=== PATIENT | female | born 1945 | race Two or more races ===

== ENCOUNTER 2024-01-23 19:21 | Inpatient (IN) | payer MEDICARE, MEDICAID ==
[~2024-01-23] VITALS: Ht 157.5 cm; Wt 46.2 kg
[2024-01-23 21:28] LABS: Basophils # (auto) 0 10 ^3/uL (0-0.2); Basophils % (auto) 0.5 % (0.0-2.0); Eosinophils # (auto) 0 10 ^3/uL (0-0.8); Hematocrit 38.5 % (36.0-46.0); Hemoglobin 13.1 g/dL (12.2-16.2); Lymphocytes # (auto) 1.1 10 ^3/uL (0.4-5.4); Lymphocytes % (auto) 30.6 % (10.0-50.0); Mean Corpuscular Hgb Conc. 34.1 g/dL (32.0-36.0); Mean Corpuscular Volume 90.7 fL (80.0-100.0); Monocytes # (auto) 0.5 10 ^3/uL (0-1.3); Monocytes % (auto) 15.2 % (0.0-12.0); Neutrophils # (auto) 1.9 10 ^3/uL (1.6-8.6); Neutrophils % (auto) 53.7 % (37.0-80.0); Nucleated Red Blood Cells % 0.3 %; Red Blood Cells 4.24 10^6/uL (4.0-5.20); Red Cell Distribution Width 14.3 % (11.8-14.3); White Blood Cell 3.5 10^3/uL (4.4-10.8)
[2024-01-23 21:49] LABS: Alanine Aminotransferase 33 U/L (7-40); Alkaline Phosphatase 67 U/L (46-116); Anion Gap 6 (5-15); Aspartate Aminotransferase 43 U/L (13-40); BUN/Creatinine Ratio 30.4 (10.0-20.0); Blood Urea Nitrogen 21 mg/dL (9-23); Calcium 9.4 mg/dL (8.7-10.4); Carbon Dioxide 30 mmol/L (20-30); Chloride 103 mmol/L (98-107); Glucose 94 mg/dL (74-106); Potassium 3.9 mmol/L (3.5-5.1); Sodium 139 mmol/L (136-145)
[2024-01-23 21:50] LABS: Bilirubin, Total 0.6 mg/dL (0.2-1.0); Total Protein 6.3 g/dL (5.7-8.2)
[2024-01-24] MEDS: HALOPERIDOL LACTATE 5 MG/ML INJ VIAL IM ONE (02:52)
[2024-01-24] MEDS ORDERED: ACETAMINOPHEN 325 MG TAB PO PRN (03:00)
[2024-01-24] MEDS ORDERED: ONDANSETRON HCL 4 MG/2 ML VIAL IV PRN (03:00)
[2024-01-24] MEDS ORDERED: HALOPERIDOL LACTATE 5 MG/ML INJ VIAL IM PRN (06:45)
[2024-01-24 09:18] VITALS: PULSE 62; RESP 14; O2SAT 98
[2024-01-24] MEDS: MEMANTINE HCL 5 MG TAB PO SCH (10:00)
[2024-01-24] MEDS: ENOXAPARIN SOD 40 MG/0.4 ML SYRINGE SC SCH (10:00)
[2024-01-24] MEDS: DONEPEZIL HYDROCHLORIDE 5 MG TAB PO SCH (22:00)
[2024-01-24 22:34] VITALS: BP 98/49; PULSE 69; RESP 18; TEMP 98.5; O2SAT 93
[2024-01-25 00:22] LABS: Urine Bacteria FEW /hpf (None Seen); Urine Blood Negative /uL (Negative); Urine Clarity Turbid (Clear); Urine Color Yellow (Yellow); Urine Hyaline Cast FEW /lpf (0 - 2); Urine Mucus FEW (None Seen); Urine Protein, UAD TRACE (Negative); Urine Specific Gravity 1.022 (1.001-1.035); Urine Urobilinogen Normal (Negative); Urine WBC 26 /hpf (0 - 5); Urine pH 5.5 (5.0-9.0)
[2024-01-25 00:27] LABS: Amphetamine Screen, Urine Neg (NEGATIVE); Barbiturate Scree,Urine Neg (NEGATIVE); Benzodiazephine Screen, Urine Neg (NEGATIVE); Cocaine Screen, Urine Neg (NEGATIVE); Opiate Scree,Urine Neg (NEGATIVE)
[2024-01-25 00:28] LABS: Cannabinoid Screen, Urine Neg (NEGATIVE); Phencyclidine Screen, Urine Neg (NEGATIVE)
[2024-01-25 01:00] VITALS: BP 99/50; PULSE 70; RESP 18; TEMP 98.1; O2SAT 93
[2024-01-25 05:00] VITALS: BP 105/53; PULSE 68; RESP 18; TEMP 98; O2SAT 93
[2024-01-25 09:00] VITALS: BP 101/52; PULSE 68; RESP 18; TEMP 98.1; O2SAT 92
[2024-01-25] MEDS ORDERED: MEMA1TAB5 PO (12:20)
[2024-01-25] MEDS ORDERED: LANS30CA58 PO (12:20)
[2024-01-25] MEDS ORDERED: HAL1T PO (12:20)
[2024-01-25] MEDS ORDERED: DIVA1TAB58 PO (12:20)
[2024-01-25] MEDS ORDERED: DONE1TAB88 PO (12:20)
[2024-01-25 13:00] VITALS: BP 104/50; PULSE 68; RESP 18; TEMP 98.2; O2SAT 93
[2024-01-25] MEDS: cefTRIAXone 1GM/50ML D5W 50 ML IV ONE (14:35)
[2024-01-25 16:54] VITALS: BP 92/58; PULSE 72; RESP 16; TEMP 97.8; O2SAT 95
[2024-01-25 21:43] VITALS: BP 108/56; PULSE 70; RESP 16; TEMP 98.3; O2SAT 92
[2024-01-26 05:00] VITALS: BP 100/55; PULSE 66; RESP 14; TEMP 98.1; O2SAT 94
[2024-01-26 08:00] VITALS: RESP 16
[2024-01-26] MEDS: cefTRIAXone 1GM/50ML D5W 50 ML IV SCH (08:44)
[2024-01-26 09:00] VITALS: BP 98/59; PULSE 72; RESP 16; O2SAT 95
[2024-01-26 13:50] LABS: Basophils # (auto) 0 10 ^3/uL (0-0.2); Basophils % (auto) 0.5 % (0.0-2.0); Eosinophils # (auto) 0 10 ^3/uL (0-0.8); Eosinophils % (auto) 1.3 % (0.0-7.0); Hematocrit 35.4 % (36.0-46.0); Hemoglobin 12.3 g/dL (12.2-16.2); Lymphocytes # (auto) 1.1 10 ^3/uL (0.4-5.4); Lymphocytes % (auto) 38.2 % (10.0-50.0); Mean Corpuscular Hemoglobin 31.2 pg (28.0-32.0); Mean Corpuscular Hgb Conc. 34.6 g/dL (32.0-36.0); Mean Corpuscular Volume 90.1 fL (80.0-100.0); Monocytes # (auto) 0.3 10 ^3/uL (0-1.3); Monocytes % (auto) 9.5 % (0.0-12.0); Neutrophils # (auto) 1.4 10 ^3/uL (1.6-8.6); Neutrophils % (auto) 50.5 % (37.0-80.0); Nucleated Red Blood Cells % 0.1 %; Red Blood Cells 3.93 10^6/uL (4.0-5.20); Red Cell Distribution Width 14.4 % (11.8-14.3); White Blood Cell 2.8 10^3/uL (4.4-10.8)
[2024-01-26 14:14] LABS: Chloride 106 mmol/L (98-107); Potassium 3.6 mmol/L (3.5-5.1); Sodium 142 mmol/L (136-145)
[2024-01-26 14:15] LABS: Anion Gap 4 (5-15); Calcium 8.9 mg/dL (8.7-10.4); Carbon Dioxide 32 mmol/L (20-30)
[2024-01-26 14:20] LABS: BUN/Creatinine Ratio 27.6 (10.0-20.0); Blood Urea Nitrogen 16 mg/dL (9-23); Glucose 106 mg/dL (74-106)
[2024-01-26 17:00] VITALS: BP_SYST 101; BP_SYST 111; BP_DIAS 51; BP_DIAS 57; PULSE 67; PULSE 69; RESP 16; TEMP 98; TEMP 98.2; O2SAT 94; O2SAT 95
[2024-01-26 21:00] VITALS: BP 101/61; PULSE 66; RESP 17; TEMP 98.8; O2SAT 92
[2024-01-27] VITALS (7 sets, daily range): BP systolic 103–133; BP diastolic 59–67; PULSE 62–70; RESP 16–18; TEMP 97.6–98.7; O2SAT 93–95
[2024-01-27] MEDS: Ensure HIGH Protein Chocolate 8oz Bottle PO SCH (12:00)
[2024-01-28] VITALS (7 sets, daily range): BP systolic 118–138; BP diastolic 62–85; PULSE 60–67; RESP 16–18; TEMP 97.4–98.6; O2SAT 93–97
[2024-01-29] VITALS (7 sets, daily range): BP systolic 116–122; BP diastolic 57–68; PULSE 64–70; RESP 14–18; TEMP 97.3–98.1; O2SAT 93–98
[2024-01-29] MEDS ORDERED: CEPH250S41 PO (11:54)
== END 2024-01-29 18:18 | disposition home or self-care (01) | DRG 71 ==
LOC: ER 19:21 → EDBD 19:21 → OVERFLOW 01-24 02:52 → WEST WING 01-24 22:10
PROVIDERS: ADMIT Nurse Practitioner; ATTEND Internal Medicine Geriatric Medicine
DX: G93.41 Metabolic encephalopathy (principal); F02.B2 Dementia in other diseases classified elsewhere, moderate, with psychotic disturbance; R64 Cachexia; N30.00 Acute cystitis without hematuria; G30.9 Alzheimer's disease, unspecified; D70.9 Neutropenia, unspecified; Z68.21 Body mass index [BMI] 21.0-21.9, adult; Z79.899 Other long term (current) drug therapy
CPT/HCPCS: 36415; 70450; 71045; 80048; 80053; 80307; 81001; 84484; 85025; 87081; G0378

== ENCOUNTER 2024-06-26 19:49 | Inpatient (IN) | payer OTHER, MEDICAID ==
[~2024-06-26] VITALS: Ht 157.5 cm; Wt 38.5 kg
[~2024-06-26 19:49] MED LIST: CEPH250S PO; DIVA1TAB58 PO; DONE1TAB88 PO; HAL1T PO; LANS30CA58 PO; MEMA1TAB5 PO
--- NOTE | 2024-06-26 20:15 | ED.PDOC ---
Altered Mental Status HPI Comments 78 year old female brought in by EMS presents to the ED with a chief complaint of ALOC. Per EMS, patient is from [facility] and EMS was called due to patient not getting out of bed for past 2 days, altered behavior, refusing to take medication. Patient has a history of similar behavior when she has a UTI. Patient is usually aware to self and is able to state name and date of but during assessment patient was nonverbal. PMHx Dementia, GERD, UTIs. No other symptoms or modifying factors present at this time. Chief Complaint: ALOC Time Seen by MD: 20:08 Reviewed Notes: Medications, Allergies Allergies: Coded Allergies: NO KNOWN ALLERGIES (Unverified , 01/24/24) Home Meds Active Scripts Cephalexin (Cephalexin) 250 Mg/5 Ml Peg, 5 ML PO TID for 5 Days, #75 ML Prov:SHANNAN HIGUERA MD 01/29/24 Reported Medications Divalproex Sodium (Divalproex Sodium Dr) 250 Mg Tab, 250 MG PO BID, TAB 01/25/24 Memantine Hydrochloride (Memantine HCl) 10 Mg Tab, 10 MG PO BID, TAB 01/25/24 Donepezil Hydrochloride (DONEPEZIL HCL) 10 Mg Tab, 10 MG PO HS, MG 01/25/24 Haloperidol (Haldol) 1 Mg Tb, 1 MG PO BID, MG 01/25/24 Lansoprazole (Lansoprazole Dr) 30 Mg Cap, 30 MG PO DAILY, CAP 01/25/24 Information Source: Emergency Med Personnel Mode of Arrival: EMS Severity: Moderate Timing: Days Duration: Since onset Prehospital treatment: None Quality: Change in Behavior, Confusion History of: Dementia Associated Signs and Symptoms: None Past Medical History PAST MEDICAL HISTORY: Dementia, GERD, UTI'S Surgical History: Unknown 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 Pupils symmetric. No facial asymmetry.) Neck: Full Range of Motion, Non-Tender, Normal Inspection, Supple Respiratory: Lungs Clear, No Accessory Muscle Use, No Respiratory Distress, Normal Breath Sounds Cardiovascular: No Edema, No JVD, Regular Rate/Rhythm Breast Exam: Deferred Gastrointestinal: Soft, Other (swats my hand away when attempts made to palpate abdomen) Genitalia: Deferred Pelvic: Deferred Rectal: Deferred Extremities: Normal inspection, Normal range of motion, Non-tender, No pedal edema Neurologic: Alert (Oriented x1. Does not answer questions. Does not follow commands.), Other (Moves all extremities with adequate strength and tone. No gross focal deficit.) Cerebellar Function: NOT DONE Reflexes: NOT DONE Skin: Dry, Pallor, Warm Lymphatic: NOT DONE Was a procedure done? Was a procedure done?: No Differential Diagnosis (ALOC) Differential Diagnosis: Dehydration, Hypoglycemia, Encephalopathy, Sepsis, CVA, Mass Lesion, SAH, Heart Failure, Renal Failure, Other (UTI) X-Ray, Labs, Meds, VS Vital Signs Date Time Temp Pulse Resp B/P (MAP) Pulse Ox O2 Delivery O2 Flow Rate FiO2 06/26/24 19:55 98.6 104 14 131/100 (110) 97 Lab Test 06/26/24 21:41 06/26/24 20:40 Range/Units Troponin I High Sensitivity 5 5 </=34 ng/L White Blood Count 17.6 H 4.4-10.8 10^3/uL Red Blood Count 4.82 4.0-5.20 10^6/uL Hemoglobin 14.9 12.2-16.2 g/dL Hematocrit 44.6 36.0-46.0 % Mean Corpuscular Volume 92.5 80.0-100.0 fL Mean Corpuscular Hemoglobin 31.0 28.0-32.0 pg Mean Corpuscular Hemoglobin Concent 33.5 32.0-36.0 g/dL Red Cell Distribution Width 13.2 11.8-14.3 % Platelet Count 211 140-450 10^3/uL Mean Platelet Volume 9.1 6.9-10.8 fL Neutrophils (%) (Auto) 90.2 H 37.0-80.0 % Lymphocytes (%) (Auto) 6.5 L 10.0-50.0 % Monocytes (%) (Auto) 3.1 0.0-12.0 % Eosinophils (%) (Auto) 0.0 0.0-7.0 % Basophils (%) (Auto) 0.2 0.0-2.0 % Neutrophils # (Auto) 15.9 H 1.6-8.6 10 ^3/uL Lymphocytes # (Auto) 1.1 0.4-5.4 10 ^3/uL Monocytes # (Auto) 0.5 0-1.3 10 ^3/uL Eosinophils # (Auto) 0 0-0.8 10 ^3/uL Basophils # (Auto) 0 0-0.2 10 ^3/uL Nucleated Red Blood Cells 0.0 % Sodium Level 144 136-145 mmol/L Potassium Level 4.0 3.5-5.1 mmol/L Chloride Level 108 H 98-107 mmol/L Carbon Dioxide Level 26 20-31 mmol/L Anion Gap 10 5-15 Blood Urea Nitrogen 26 H 9-23 mg/dL Creatinine 0.82 0.550-1.02 mg/dL Glomerular Filtration Rate Calc 73 >90 mL/min BUN/Creatinine Ratio 31.7 H 10.0-20.0 Serum Glucose 114 H 74-106 mg/dL Lactic Acid Level 1.4 0.4-2.0 mmol/L Calcium Level 9.9 8.7-10.4 mg/dL Total Bilirubin 0.8 0.2-1.0 mg/dL Aspartate Amino Transferase (AST) 40 13-40 U/L Alanine Aminotransferase (ALT) 12 7-40 U/L Alkaline Phosphatase 105 46-116 U/L Total Protein 7.3 5.7-8.2 g/dL Albumin 4.2 3.2-4.8 g/dL [place] [id number] Ph: [phone] DIAGNOSTIC IMAGING Diagnostic Imaging Report : [id number] Signed PATIENT: PATRICIA MOTT ACCT: [id number] UNIT: [id number] : 1945 LOC: ER ROOM / BED: / AGE / SEX: 78 / F ADM STATUS: REG ER SERVICE 10 ORDERING PHYSICIAN: MARILIN FISHMAN MD PROCEDURE(s): CXRP - CHEST PORTABLE REASON: aloc ORDER NUMBER(s): [id number], ACCESSION NUMBER(s): [id number] CHEST RADIOGRAPH Indication: aloc Technique: Single frontal view of the chest was obtained COMPARISON: XY CHEST PORTABLE on DOS: 01/23/24 FINDINGS: Lines and Tubes: None Lungs: Clear Pleura: No effusion. No pneumothorax. Cardiomediastinal contours: Unremarkable Bones: Unremarkable IMPRESSION: 1. No acute disease. ATED BY: ANTHONY PEDERSON MD DICTATED DATE/TIME: 06/26/242030 SIGNED BY: ANTHONY PEDERSON MD SIGNED DATE/TIME: 06/26/242030 CC: X-Ray, Labs, Meds, VS Comment 78-year-old female with history of dementia brought in by EMS from [facility] for evaluation of change in behavior. Patient reportedly refusing medications and not getting out of bed. Staff reports that patient has similar symptoms when she has a urinary tract infection. Vitals remarkable for heart rate 104, BP 131/100 Exam remarkable for patient orientation x1. This is the patient's reported baseline mental status. There was no other gross focal neurologic deficit. Rhythm strip independently interpreted by me: Sinus tach, rate 102, no ectopy. Head CT unremarkable Chest x-ray unremarkable CBC remarkable for WBC 17.6. Differential shows a left shift. CMP remarkable for BUN 26, no other abnormality of acute significance. Lactate normal. Troponin negative x2. UA pending Patient treated with the following in the ED: 1 L 0.9 normal saline IV bolus, Rocephin 1 g IV On re-evaluation, exam is unchanged. Vitals are stable. Case discussed with Cherry Mcleod NP who will admit the patient. Time of 1ST Reevaluation: 20:38 Reevaluation 1ST: Unchanged Patient Education/Counseling: Diagnosis, Treatment, Prognosis Family Education/Counseling: No Family Present Additional Information I reviewed the following notes from patient's past medical encounters: The following tests were ordered, and results were reviewed by me: EKG, TROP - x3, CBC, LA W/ REFLEX, UA, XY CHEST, BLOOD CULTURE, URINE BACTERIAL CULTURE Additional Information was gathered from interviewing the following independent historians: EMS I reviewed and agreed with the following test results read by other providers: XY CHEST I discussed treatment and results with medical personnel and: patient Departure 1 Departure Time of Disposition: 00:13 Impression: Primary Impression: Metabolic encephalopathy Disposition: ADMITTED INPATIENT Admit to: Tele Condition: Guarded Critical Care Note Critical Care Time?: No Stability Stability form required: No Heart Score Heart Score: Heart Score Response (Comments) Value History N/A 0 EKG N/A 0 Age N/A 0 Risk Factors N/A 0 Troponin N/A 0 Total 0 I personally scribed for MARILIN FISHMAN MD ([email or web address]) on 06/26/24 at 20 :15. Electronically submitted by Светлана Maurice ([email or web address]). I personally scribed for MARILIN FISHMAN MD ([email or web address]) on 06/26/24 at 20:16. Electronically submitted by Светлана Maurice ([email or web address]). I personally scribed for MARILIN FISHMAN MD ([email or web address]) on 06/26/24 at 20:36. Electronically submitted by Светлана Maurice ([email or web address]). MARILIN FISHMAN MD Jun 26, 2024 20:15
--- NOTE | 2024-06-26 20:34 | DVH ---
CHEST RADIOGRAPH Indication: aloc Technique: Single frontal view of the chest was obtained COMPARISON: XY CHEST PORTABLE on DOS: 01/23/24 FINDINGS: Lines and Tubes: None Lungs: Clear Pleura: No effusion. No pneumothorax. Cardiomediastinal contours: Unremarkable Bones: Unremarkable IMPRESSION: 1. No acute disease.
[2024-06-26 21:06] LABS: Basophils # (auto) 0 10 ^3/uL (0-0.2); Basophils % (auto) 0.2 % (0.0-2.0); Eosinophils # (auto) 0 10 ^3/uL (0-0.8); Hematocrit 44.6 % (36.0-46.0); Hemoglobin 14.9 g/dL (12.2-16.2); Lymphocytes # (auto) 1.1 10 ^3/uL (0.4-5.4); Lymphocytes % (auto) 6.5 % (10.0-50.0); Mean Corpuscular Hgb Conc. 33.5 g/dL (32.0-36.0); Mean Corpuscular Volume 92.5 fL (80.0-100.0); Monocytes # (auto) 0.5 10 ^3/uL (0-1.3); Monocytes % (auto) 3.1 % (0.0-12.0); Neutrophils # (auto) 15.9 10 ^3/uL (1.6-8.6); Neutrophils % (auto) 90.2 % (37.0-80.0); Platelet Count (auto) 211 10^3/uL (140-450); Red Blood Cells 4.82 10^6/uL (4.0-5.20); Red Cell Distribution Width 13.2 % (11.8-14.3); White Blood Cell 17.6 10^3/uL (4.4-10.8)
[2024-06-26 21:27] LABS: Alanine Aminotransferase 12 U/L (7-40); Albumin 4.2 g/dL (3.2-4.8); Alkaline Phosphatase 105 U/L (46-116); Anion Gap 10 (5-15); BUN/Creatinine Ratio 31.7 (10.0-20.0); Bilirubin, Total 0.8 mg/dL (0.2-1.0); Calcium 9.9 mg/dL (8.7-10.4); Carbon Dioxide 26 mmol/L (20-31); Sodium 144 mmol/L (136-145); Total Protein 7.3 g/dL (5.7-8.2)
[2024-06-26 21:57] LABS: Aspartate Aminotransferase 40 U/L (13-40); Blood Urea Nitrogen 26 mg/dL (9-23); Chloride 108 mmol/L (98-107); Glucose 114 mg/dL (74-106)
--- NOTE | 2024-06-27 00:35 | DVH ---
EXAM: CT HEAD WITHOUT CONTRAST INDICATION: altered mental status TECHNIQUE: CT of the head without intravenous contrast. Radiation Dose : 1. Head: CT Dose: CTDI volume is 52 mGy. Dose-length product is 925 mGy*cm The dose indicators for CT are the volume Computed Tomography (CT) Dose Index (CTDIvol) and the Dose Length Product (DLP), and are measured in units of mGy and mGy-cm, respectively. These indicators are not patient dose, but values generated from the CT scanner acquisition factors. The report includes radiation exposure data for exposures received during this examination. COMPARISON: CT HEAD WITHOUT CONTRAST on DOS: 01/23/24 FINDINGS: There is no evidence of acute intracranial hemorrhage, extra-axial collection, mass effect, midline s hift, herniation or hydrocephalus. The ventricles, sulci and cisterns are age appropriate. The liao-white differentiation is intact. Patchy periventricular and subcortical white matter hypoattenuation is nonspecific but may be related to small vessel ischemic disease. The visualized paranasal sinuses and mastoid air cells are clear. The surrounding soft tissues and osseous structures are unremarkable. IMPRESSION: 1. No acute intracranial abnormality. Radiation optimization: All CT scans at this facility use at least one of these dose optimization lucas hniques: automated exposure control mA and/or kV adjustment per patient size (includes targeted exam s where dose is matched to clinical indication) or iterative reconstruction.
[2024-06-27] MEDS ORDERED: ACETAMINOPHEN 325 MG TAB PO PRN (01:45)
--- NOTE | 2024-06-27 01:50 | DVHHP2 ---
Admitting Diagnosis: altered mental status, rule out uti, leukocytosis History of Present Illness Exam Limitations: Clinical condition HPI Mrs. Macario Naranjo is a 78 year old female with a history of dementia, GERD, UTI's who presents with a chief complaint of ALOC. Limited HPI due to patient mental status. ED notes "Per EMS, patient is from [facility] and EMS was called due to patient not getting out of bed for past 2 days, altered behavior, refusing to take medication. Patient has a history of similar behavior when she has a UTI. Patient is usually aware to self and is able to state name and date of but during assessment patient was nonverbal." Patient admitted for further evaluation. Home Meds Active Scripts Cephalexin (Cephalexin) 250 Mg/5 Ml Peg, 5 ML PO TID for 5 Days, #75 ML Prov:SHANNAN HIGUERA MD 01/29/24 Reported Medications Divalproex Sodium (Divalproex Sodium Dr) 250 Mg Tab, 250 MG PO BID, TAB 01/25/24 Memantine Hydrochloride (Memantine HCl) 10 Mg Tab, 10 MG PO BID, TAB 01/25/24 Donepezil Hydrochloride (DONEPEZIL HCL) 10 Mg Tab, 10 MG PO HS, MG 01/25/24 Haloperidol (Haldol) 1 Mg Tb, 1 MG PO BID, MG 01/25/24 Lansoprazole (Lansoprazole Dr) 30 Mg Cap, 30 MG PO DAILY, CAP 01/25/24 Past Medical History Cardiac: No pertinent Hx Pulmonary: No pertinent Hx Central Nervous System: Dementia GI: GERD Hemotology/Oncology: No pertinent Hx Hepatobiliary: No pertinent Hx Psychiatric: No pertinent Hx Musculoskeletal: No pertinent Hx Rheumotologic: No pertinent Hx Infectious Disease: No peritnent Hx ENT: No pertinent Hx Renal/: UTI Endocrine: No pertinent Hx Dermatology: No pertinent Hx Past Surgical History: No pertinent Hx Patient Family History: FH: dementia G8 MOTHER G8 FATHER Smoker: No Hx (Negative) Lives with: Intermediate Review of Systems Comments unable to perform ROS due to altered mental status H&P Exam Vital Signs Vital Signs Date Time Temp Pulse Resp B/P (MAP) Pulse Ox O2 Delivery O2 Flow Rate FiO2 06/26/24 19:55 98.6 104 14 131/100 (110) 97 General Appeara: Well developed Head Exam: Normal inspection Neck Exam: Normal inspection, Non-tender, Normal alignment Eye Exam: bilateral eye Normal inspection, bilateral eye PERRL, bilateral eye EOMI Ear Exam: bilateral ear Auricle normal Nasal Exam: Normal inspection Mouth: Dry mouth Pulmonary/Respiratory: Normal inspection, Normal breath sounds, Chest non- tender, Lungs clear Cardiovascular/Chest: Normal inspection, Regular rate, Normal Rhythm Peripheral Pulses: 2+ dorsalis pedis (R), 2+ dorsalis pedis (L), 2+ Radial (R), 2+ Radial (L) Abdominal Exam: Normal bowel sounds, Soft, No tenderness Rectal Exam: Deferred 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 Appearance: Memory impairment, Disheveled, Other (Dementia) Eye contact/ Speech: Avoids eye contact, Refused to answer, Uncooperative Thoughts/Psych: Other (altered ) Skin Exam: Normal color, Warm/dry Labs/Xrays Labs Test 06/26/24 21:41 06/26/24 20:40 Range/Units Troponin I High Sensitivity 5 </=34 ng/L White Blood Count 17.6 H 4.4-10.8 10^3/uL Red Blood Count 4.82 4.0-5.20 10^6/uL Hemoglobin 14.9 12.2-16.2 g/dL Hematocrit 44.6 36.0-46.0 % Mean Corpuscular Volume 92.5 80.0-100.0 fL Mean Corpuscular Hemoglobin 31.0 28.0-32.0 pg Mean Corpuscular Hemoglobin Concent 33.5 32.0-36.0 g/dL Red Cell Distribution Width 13.2 11.8-14.3 % Platelet Count 211 140-450 10^3/uL Mean Platelet Volume 9.1 6.9-10.8 fL Neutrophils (%) (Auto) 90.2 H 37.0-80.0 % Lymphocytes (%) (Auto) 6.5 L 10.0-50.0 % Monocytes (%) (Auto) 3.1 0.0-12.0 % Eosinophils (%) (Auto) 0.0 0.0-7.0 % Basophils (%) (Auto) 0.2 0.0-2.0 % Neutrophils # (Auto) 15.9 H 1.6-8.6 10 ^3/uL Lymphocytes # (Auto) 1.1 0.4-5.4 10 ^3/uL Monocytes # (Auto) 0.5 0-1.3 10 ^3/uL Eosinophils # (Auto) 0 0-0.8 10 ^3/uL Basophils # (Auto) 0 0-0.2 10 ^3/uL Nucleated Red Blood Cells 0.0 % Sodium Level 144 136-145 mmol/L Potassium Level 4.0 3.5-5.1 mmol/L Chloride Level 108 H 98-107 mmol/L Carbon Dioxide Level 26 20-31 mmol/L Anion Gap 10 5-15 Blood Urea Nitrogen 26 H 9-23 mg/dL Creatinine 0.82 0.550-1.02 mg/dL Glomerular Filtration Rate Calc 73 >90 mL/min BUN/Creatinine Ratio 31.7 H 10.0-20.0 Serum Glucose 114 H 74-106 mg/dL Lactic Acid Level 1.4 0.4-2.0 mmol/L Calcium Level 9.9 8.7-10.4 mg/dL Total Bilirubin 0.8 0.2-1.0 mg/dL Aspartate Amino Transferase (AST) 40 13-40 U/L Alanine Aminotransferase (ALT) 12 7-40 U/L Alkaline Phosphatase 105 46-116 U/L Total Protein 7.3 5.7-8.2 g/dL Albumin 4.2 3.2-4.8 g/dL Assessment/Plan Problem List: (1) Metabolic encephalopathy (2) Dementia (3) Altered mental status Plan 78 yo female with known history of dementia, GERD, UTI's presents with altered mental status. 1. Leukocytosis 2. altered mental status Admit Med surgical unit ppx Broad spectrum IV antibiotics Urine culture social service consult PT evaluation IV fluids Discussed assessment and care plan with supervising MD. Plan discussed with: Other Code Visit Code Visit Total Time (mins): 45 Additional Comments Additional Comments Additional Comments Patient's chart reviewed and discussed with the nurse practitioner. Patient is seen evaluated in the treatment by nurse practitioner this morning. I agree with her evaluation, documentation, assessment and care plan as outlined. NEETA RM Jun 27, 2024 01:50 BRADY GUADARRAMA MD Jun 27, 2024 14:23
[2024-06-27] MEDS: SODIUM CHLORIDE 0.9% 1,000 ML IV ONE ×2 (06:45→08:52)
[2024-06-27] MEDS: cefTRIAXone 1GM/50ML D5W 50 ML IV ONE (06:45)
[2024-06-27 07:41] LABS: Urine Bacteria MANY /hpf (None Seen); Urine Blood 2+ /uL (Negative); Urine Protein, UAD 3+ (Negative); Urine Specific Gravity 1.017 (1.001-1.035); Urine Squamous Epithelial Cell FEW /hpf (<5); Urine Urobilinogen Normal (Negative); Urine WBC 1147 /hpf (0 - 5); Urine WBC Clumps PRESENT /hpf (None Seen)
[2024-06-27 07:43] LABS: Urine Clarity Cloudy (Clear); Urine Color Yellow (Yellow)
[2024-06-27 09:00] VITALS: PULSE 87; RESP 16; O2SAT 96
[2024-06-27] MEDS: cefTRIAXone 1GM/50ML D5W 50 ML IV SCH (10:27)
[2024-06-27] MEDS: PANTOPRAZOLE 40 MG/10 ML VIAL INJ IV SCH (10:27)
[2024-06-27] MEDS: ENOXAPARIN SOD 40 MG/0.4 ML SYRINGE SC SCH (10:27)
[2024-06-27 21:59] VITALS: PULSE 79; RESP 18; O2SAT 96
[2024-06-27] MEDS: MEMANTINE HCL 5 MG TAB PO SCH (22:00)
[2024-06-27] MEDS: HALOPERIDOL 1 MG TAB PO SCH (22:00)
[2024-06-27] MEDS: DONEPEZIL HYDROCHLORIDE 5 MG TAB PO SCH (22:00)
[2024-06-27 22:05] VITALS: BP 139/82; PULSE 80; RESP 16; TEMP 97.8; O2SAT 94
[2024-06-27 22:09] VITALS: PULSE 77
[2024-06-27] MEDS: D5W/SOD CHL 0.45% 1,000 ML IV SCH (23:56)
[2024-06-28] VITALS (8 sets, daily range): BP systolic 114–151; BP diastolic 68–84; PULSE 65–77; RESP 16–20; TEMP 97–98.6; O2SAT 92–96
[2024-06-28] MEDS ORDERED: VANCOMYCIN PER PHARMACY 0 MG IV SCH (05:15)
[2024-06-28] MEDS: VANCOMYCIN 1GM/250mL NS or D5W KIT IV ONE (05:21)
--- NOTE | 2024-06-28 16:36 | DVHPN2 ---
Progress Note - Dictate Date Seen: Jun 28, 2024 Medical Necessity Reason Pt with a Central, PICC or Fol: No Subjective Clinically stable. Remains intermittently confused. Does have baseline dementia. vital signs Vital Sign Date Time Temp Pulse Resp B/P (MAP) Pulse Ox O2 Delivery O2 Flow Rate FiO2 06/28/24 08:00 74 17 Room Air* 0 21 06/28/24 05:00 97.7 151/75 (100) 96 97.7 Total Intake and Output 06/27/24 06/27/24 06/28/24 15:00 23:00 07:00 Intake Total 250 ml Output Total 150 ml Balance 100 ml medications Current Medications Medications Dose Ordered Sig/Romy Route Start Time Stop Time Status Last Admin Dose Admin Ceftriaxone Sodium 50 ml @ 100 mls/hr DAILY IV 06/27/24 10:00 06/28/24 09:51 100 MLS/HR Acetaminophen 650 mg Q6HPRN PRN PO 06/27/24 01:45 Pantoprazole Sodium 40 mg DAILY IV 06/27/24 10:00 06/28/24 09:51 40 MG Enoxaparin Sodium 40 mg DAILY SC 06/27/24 10:00 06/28/24 10:11 40 MG Divalproex Sodium 250 mg BID PO 06/27/24 22:00 Haloperidol 1 mg BID PO 06/27/24 22:00 Donepezil HCl 10 mg HS PO 06/27/24 22:00 Memantine 10 mg BID PO 06/27/24 22:00 Vancomycin HCl 0 ml @ 0 mls/hr UD IV 06/28/24 05:15 Vancomycin HCl 250 ml @ 250 mls/hr DAILY@0500 IV 06/29/24 05:00 Cancel Vancomycin HCl 750 mg/Dextrose 100 ml @ 100 mls/hr DAILY@0600 IV 06/29/24 06:00 objective Elderly female comfortable in bed with a distress. HEENT neck supple no JVD. Heart regular rate and rhythm S1-S2. Lungs without rales wheezes. Poor inspiratory effort. Abdomen soft nontender positive bowel sounds. Extremities no edema positive pulses present. laboratory and microbiology Laboratory Tests 06/26/24 20:40 Test 06/26/24 20:40 Range/Units Serum Glucose 114 H 74-106 mg/dL Assessment/Plan Urinary tract infection We will wait for urine culture results. We will do follow up labs. Social service consultation for safety evaluation at home. Continue physical therapy. Monitor overnight. If she remains stable consider discharge back to her assisted living facility tomorrow. Problems(with codes): (1) Metabolic encephalopathy (2) Dementia Plan discussed with: Other BRADY GUADARRAMA MD Jun 28, 2024 16:36
[2024-06-28 17:10] LABS: Basophils # (auto) 0 10 ^3/uL (0-0.2); Basophils % (auto) 0.3 % (0.0-2.0); Eosinophils # (auto) 0 10 ^3/uL (0-0.8); Eosinophils % (auto) 0.3 % (0.0-7.0); Hematocrit 39.3 % (36.0-46.0); Lymphocytes # (auto) 1.3 10 ^3/uL (0.4-5.4); Lymphocytes % (auto) 14.5 % (10.0-50.0); Mean Corpuscular Hemoglobin 31.5 pg (28.0-32.0); Mean Corpuscular Hgb Conc. 33.2 g/dL (32.0-36.0); Mean Corpuscular Volume 94.9 fL (80.0-100.0); Monocytes # (auto) 0.4 10 ^3/uL (0-1.3); Monocytes % (auto) 4.7 % (0.0-12.0); Neutrophils % (auto) 80.2 % (37.0-80.0); Nucleated Red Blood Cells % 0.1 %; Platelet Count (auto) 189 10^3/uL (140-450); Red Blood Cells 4.14 10^6/uL (4.0-5.20); Red Cell Distribution Width 13.2 % (11.8-14.3); White Blood Cell 8.8 10^3/uL (4.4-10.8)
[2024-06-28 17:19] LABS: Anion Gap 7 (5-15); Carbon Dioxide 27 mmol/L (20-31)
[2024-06-28 17:20] LABS: Calcium 9.3 mg/dL (8.7-10.4)
[2024-06-28 17:25] LABS: BUN/Creatinine Ratio 29.5 (10.0-20.0); Blood Urea Nitrogen 18 mg/dL (9-23); Glucose 93 mg/dL (74-106)
[2024-06-28 17:26] LABS: Potassium 3.2 mmol/L (3.5-5.1); Sodium 148 mmol/L (136-145)
[2024-06-28 17:27] LABS: Chloride 114 mmol/L (98-107)
--- NOTE | 2024-06-28 18:01 | DVHINCON2 ---
Date of service: Jun 28, [address] Arnold Reason for Consultation UTI History of Present Illness Patient is a 78-year-old female presents to the hospital with ALOC. HPI is limited due to patient's altered mental status. "Per EMS, patient is from [facility] and EMS was called due to patient not getting out of bed for past 2 days, altered behavior, refusing to take medication. Patient has a history of similar behavior when she has a UTI. Patient is usually aware to self and is able to state name and date of but during assessment patient was nonverbal." Past Medical History Patient's past medical history is significant for dementia, GERD and UTI's. Family History: FH: dementia G8 MOTHER G8 FATHER Allergies: Coded Allergies: NO KNOWN ALLERGIES (Unverified , 01/24/24) Home Meds Active Scripts Cephalexin (Cephalexin) 250 Mg/5 Ml Peg, 5 ML PO TID for 5 Days, #75 ML Prov:SHANNAN HIGUERA MD 01/29/24 Reported Medications Divalproex Sodium (Divalproex Sodium Dr) 250 Mg Tab, 250 MG PO BID, TAB 01/25/24 Memantine Hydrochloride (Memantine HCl) 10 Mg Tab, 10 MG PO BID, TAB 01/25/24 Donepezil Hydrochloride (DONEPEZIL HCL) 10 Mg Tab, 10 MG PO HS, MG 01/25/24 Haloperidol (Haldol) 1 Mg Tb, 1 MG PO BID, MG 01/25/24 Lansoprazole (Lansoprazole Dr) 30 Mg Cap, 30 MG PO DAILY, CAP 01/25/24 Current Medications Current Medications Medications (Trade) Dose Ordered Sig/Romy Route PRN Reason Start Time Stop Time Status Last Admin Divalproex Sodium (Depakote "Dr" Tablet) 250 mg BID PO 06/27/24 22:00 Haloperidol (Haldol Tablet) 1 mg BID PO 06/27/24 22:00 Donepezil HCl (Aricept Tablet) 10 mg HS PO 06/27/24 22:00 Memantine (Namenda Tablet) 10 mg BID PO 06/27/24 22:00 Dextrose/Sodium Chloride 1,000 ml @ 50 mls/hr Q20H IV 06/27/24 23:00 06/28/24 16:10 DC 06/27/24 23:56 Vancomycin HCl 0 ml @ 0 mls/hr UD IV 06/28/24 05:15 Vancomycin HCl 250 ml @ 250 mls/hr DAILY@0500 IV 06/29/24 05:00 Cancel Vancomycin HCl 750 mg/Dextrose 100 ml @ 100 mls/hr DAILY@0600 IV 06/29/24 06:00 Dextrose 1,000 ml @ 50 mls/hr Q20H IV 06/28/24 17:30 Review of Systems Unable to perform due to patient's altered mental status. Vital Signs Vital Signs Date Time Temp Pulse Resp B/P (MAP) Pulse Ox O2 Delivery O2 Flow Rate FiO2 06/28/24 08:00 74 17 Room Air* 0 21 06/28/24 05:00 97.7 151/75 (100) 96 97.7 Physical Exam General Appeara: Well developed Head Exam: Normal inspection Neck Exam: Normal inspection, Non-tender, Normal alignment Eye Exam: bilateral eye Normal inspection, bilateral eye PERRL, bilateral eye EOMI Ear Exam: bilateral ear Auricle normal Nasal Exam: Normal inspection Mouth: Dry mouth Pulmonary/Respiratory: Normal inspection, Normal breath sounds, Chest non- tender, Lungs clear Cardiovascular/Chest: Normal inspection, Regular rate, Normal Rhythm Abdominal Exam: Normal bowel sounds, Soft, No tenderness Appearance: Memory impairment, Disheveled, Other (Dementia) Eye contact/ Speech: Avoids eye contact, Refused to answer, Uncooperative Thoughts/Psych: Other (altered ) Skin Exam: Normal color, Warm/dry Labs/Diagnostic Data Labs Test 06/28/24 16:45 06/27/24 06:40 06/26/24 21:41 06/26/24 20:40 Range/Units White Blood Count 8.8 # 4.4-10.8 10^3/uL Red Blood Count 4.14 4.0-5.20 10^6/uL Hemoglobin 13.0 12.2-16.2 g/dL Hematocrit 39.3 # 36.0-46.0 % Mean Corpuscular Volume 94.9 80.0-100.0 fL Mean Corpuscular Hemoglobin 31.5 28.0-32.0 pg Mean Corpuscular Hemoglobin Concent 33.2 32.0-36.0 g/dL Red Cell Distribution Width 13.2 11.8-14.3 % Platelet Count 189 140-450 10^3/uL Mean Platelet Volume 9.0 6.9-10.8 fL Neutrophils (%) (Auto) 80.2 H 37.0-80.0 % Lymphocytes (%) (Auto) 14.5 10.0-50.0 % Monocytes (%) (Auto) 4.7 0.0-12.0 % Eosinophils (%) (Auto) 0.3 0.0-7.0 % Basophils (%) (Auto) 0.3 0.0-2.0 % Neutrophils # (Auto) 7.0 1.6-8.6 10 ^3/uL Lymphocytes # (Auto) 1.3 0.4-5.4 10 ^3/uL Monocytes # (Auto) 0.4 0-1.3 10 ^3/uL Eosinophils # (Auto) 0 0-0.8 10 ^3/uL Basophils # (Auto) 0 0-0.2 10 ^3/uL Nucleated Red Blood Cells 0.1 % Sodium Level 148 H 136-145 mmol/L Potassium Level 3.2 L 3.5-5.1 mmol/L Chloride Level 114 H 98-107 mmol/L Carbon Dioxide Level 27 20-31 mmol/L Anion Gap 7 5-15 Blood Urea Nitrogen 18 9-23 mg/dL Creatinine 0.61 0.550-1.02 mg/dL Glomerular Filtration Rate Calc 91 >90 mL/min BUN/Creatinine Ratio 29.5 H 10.0-20.0 Serum Glucose 93 74-106 mg/dL Calcium Level 9.3 8.7-10.4 mg/dL Urine Color Yellow Yellow Urine Clarity Cloudy H Clear Urine pH 8.0 5.0-9.0 Urine Specific [place] 1.017 1.001-1.035 Urine Protein 3+ H Negative Urine Ketones 1+ H Negative Urine Blood 2+ H Negative /uL Urine Nitrite Negative Negative Urine Bilirubin Negative Negative Urine Urobilinogen Normal Negative mg/dL Urine Leukocyte Esterase 3+ Negative /uL Urine RBC 53 0 - 4 /hpf Urine WBC 1147 0 - 5 /hpf Urine WBC Clumps Present None Seen /hpf Urine Squamous Epithelial Cells Few <5 /hpf Urine Bacteria Many H None Seen /hpf Urine Glucose Normal Normal mg/dL Troponin I High Sensitivity 5 </=34 ng/L Lactic Acid Level 1.4 0.4-2.0 mmol/L Total Bilirubin 0.8 0.2-1.0 mg/dL Aspartate Amino Transferase (AST) 40 13-40 U/L Alanine Aminotransferase (ALT) 12 7-40 U/L Alkaline Phosphatase 105 46-116 U/L Total Protein 7.3 5.7-8.2 g/dL Albumin 4.2 3.2-4.8 g/dL Microbiology Date/Time Source Procedure Growth Status 06/27/24 06:40 Urine - [place] Urine Culture - Preliminary Resulted 06/26/24 20:40 Blood Blood Culture - Preliminary NO GROWTH AFTER 24 HOURS OF INCUBATION. Resulted Assessment Patient is a 78-year-old female presents to the hospital with: SIRS Altered mental status Bacteremia UTI Dementia Leukocytosis Recommendations: Bacteremia is likely colonization, Leucocytosis improved Continue Ceftriaxone. Discontinue Vancomycin 06/26, Blood cultured showed no growth 06/27, Urine culture showed >100,000 CFU/mL Mixed Evelin Thank you for consult. PAT MARTINEZ MD Jun 28, 2024 18:01
[2024-06-28] MEDS: POTASSIUM CHL 20MEQ/100ML 100 ML IV ONE (18:06)
[2024-06-28] MEDS: D5W 5% 1,000 ML IV SCH (18:07)
[2024-06-29] VITALS (9 sets, daily range): BP systolic 137–155; BP diastolic 69–83; PULSE 65–80; RESP 16–20; TEMP 97–97.8; O2SAT 93–95
[2024-06-29] MEDS ORDERED: VANCOMYCIN 1GM/250ML KIT 250 ML IV SCH (05:00)
[2024-06-29] MEDS ORDERED: VANCOMYCIN 750MG VIAL 750 MG in D5W 5% 100 ML IV SCH (06:00)
[2024-06-29] MEDS: ONDANSETRON HCL 4 MG/2 ML VIAL IV ONE (06:52)
[2024-06-29] MEDS: VANCOMYCIN 750MG VIAL 750 MG in D5W 5% 100 ML IV SCH (08:43)
[2024-06-29 12:09] LABS: Chloride 106 mmol/L (98-107); Potassium 3.6 mmol/L (3.5-5.1); Sodium 143 mmol/L (136-145)
[2024-06-29 12:10] LABS: Anion Gap 8 (5-15); Calcium 9.5 mg/dL (8.7-10.4); Carbon Dioxide 29 mmol/L (20-31)
[2024-06-29 12:15] LABS: BUN/Creatinine Ratio 23.8 (10.0-20.0); Blood Urea Nitrogen 15 mg/dL (9-23)
[2024-06-29 12:19] LABS: Glucose 138 mg/dL (74-106)
--- NOTE | 2024-06-29 16:22 | DVHPN2 ---
Progress Note - Dictate Date Seen: Jun 29, 2024 Medical Necessity Reason Pt with a Central, PICC or Fol: No Subjective Clinically stable. Remains confused and not wanting to eat or take anything orally. Unable to get hold of next of kin given her no correct phone number or address. vital signs Vital Sign Date Time Temp Pulse Resp B/P (MAP) Pulse Ox O2 Delivery O2 Flow Rate FiO2 06/29/24 08:00 65 06/29/24 08:00 16 Room Air* 0 21 06/29/24 02:10 144/73 (96) 95 06/28/24 21:00 97.6 97.6 Total Intake and Output 06/28/24 06/28/24 06/29/24 15:00 23:00 07:00 Intake Total 50 ml 100 ml 100 ml Output Total 250 ml 125 ml Balance 50 ml -150 ml -25 ml medications Current Medications Medications Dose Ordered Sig/Romy Route Start Time Stop Time Status Last Admin Dose Admin Ceftriaxone Sodium 50 ml @ 100 mls/hr DAILY IV 06/27/24 10:00 06/29/24 08:44 100 MLS/HR Acetaminophen 650 mg Q6HPRN PRN PO 06/27/24 01:45 Enoxaparin Sodium 40 mg DAILY SC 06/27/24 10:00 06/29/24 08:43 40 MG Divalproex Sodium 250 mg BID PO 06/27/24 22:00 Haloperidol 1 mg BID PO 06/27/24 22:00 06/28/24 22:49 1 MG Donepezil HCl 10 mg HS PO 06/27/24 22:00 06/28/24 22:41 10 MG Memantine 10 mg BID PO 06/27/24 22:00 06/28/24 22:38 10 MG Vancomycin HCl 0 ml @ 0 mls/hr UD IV 06/28/24 05:15 Vancomycin HCl 250 ml @ 250 mls/hr DAILY@0500 IV 06/29/24 05:00 Cancel Dextrose 1,000 ml @ 50 mls/hr Q20H IV 06/28/24 17:30 06/28/24 18:07 50 MLS/HR Vancomycin HCl 750 mg/Dextrose 100 ml @ 100 mls/hr DAILY@0800 IV 06/29/24 08:00 06/29/24 08:43 100 MLS/HR objective Elderly female comfortable in bed with out any distress however confused. Heart regular rate and rhythm S1 plus S2. Lungs fair air movement without rales wheezes. Abdomen soft nontender positive bowel sounds. Extremities no edema. laboratory and microbiology Laboratory Tests 06/29/24 10:40 06/28/24 16:45 Test 06/29/24 10:40 Range/Units Serum Glucose 138 H 74-106 mg/dL Assessment/Plan Urine cultures mixed wyatt. Blood cultures appears to be contamination and 1/2 bottles negative for growth. Advanced Alzheimer's disease/dementia appears to be progressing. We will try to get hold of next of kin/decision maker to further discuss her condition and prognosis. Given her dementia and not taking anything orally she may be candidate for palliative/comfort care with hospice services. For now continue IV fluids and supportive care and treatment as she is on. Further clinical management per clinical course. Discussed with the nurse regarding care plan. Problems(with codes): (1) Dementia (2) Altered mental status Dietary Evaluation Review Comments: 1) If patient remains NPO for more than 7 days, consider EN/TPN to meet at least 75% of estimated needs. 2) Advance patient to regular diet when medically feasible to cardiac diet, pending [employer] evaluation. 3) Continue IV fluids and ABT. Expected Outcomes/Goals: 1) patient labs and appetite to improve 2) patient to receive nutrition support within 7 days of NPO status 3) f/u in 2-3 days Plan discussed with: Other BRADY GUADARRAMA MD Jun 29, 2024 16:22
--- NOTE | 2024-06-29 21:21 | DVHPN2 ---
Progress Note - Dictate Date Seen: Jun 29, 2024 Medical Necessity Reason Pt with a Central, PICC or Fol: No Subjective Clinically stable. Remains confused and not wanting to eat or take anything orally. vital signs Vital Sign Date Time Temp Pulse Resp B/P (MAP) Pulse Ox O2 Delivery O2 Flow Rate FiO2 06/29/24 17:00 97.8 68 16 137/69 (91) 95 97.8 06/29/24 08:00 Room Air* 0 21 Total Intake and Output 06/28/24 06/28/24 06/29/24 15:00 23:00 07:00 Intake Total 50 ml 100 ml 100 ml Output Total 250 ml 125 ml Balance 50 ml -150 ml -25 ml medications Current Medications Medications Dose Ordered Sig/Romy Route Start Time Stop Time Status Last Admin Dose Admin Ceftriaxone Sodium 50 ml @ 100 mls/hr DAILY IV 06/27/24 10:00 06/29/24 08:44 100 MLS/HR Acetaminophen 650 mg Q6HPRN PRN PO 06/27/24 01:45 Enoxaparin Sodium 40 mg DAILY SC 06/27/24 10:00 06/29/24 08:43 40 MG Divalproex Sodium 250 mg BID PO 06/27/24 22:00 Haloperidol 1 mg BID PO 06/27/24 22:00 06/28/24 22:49 1 MG Donepezil HCl 10 mg HS PO 06/27/24 22:00 06/28/24 22:41 10 MG Memantine 10 mg BID PO 06/27/24 22:00 06/28/24 22:38 10 MG Vancomycin HCl 0 ml @ 0 mls/hr UD IV 06/28/24 05:15 Vancomycin HCl 250 ml @ 250 mls/hr DAILY@0500 IV 06/29/24 05:00 Cancel Dextrose 1,000 ml @ 50 mls/hr Q20H IV 06/28/24 17:30 06/28/24 18:07 50 MLS/HR Vancomycin HCl 750 mg/Dextrose 100 ml @ 100 mls/hr DAILY@0800 IV 06/29/24 08:00 06/29/24 08:43 100 MLS/HR objective General Appeara: Well developed Head Exam: Normal inspection Neck Exam: Normal inspection, Non-tender, Normal alignment Eye Exam: bilateral eye Normal inspection, bilateral eye PERRL, bilateral eye EOMI Ear Exam: bilateral ear Auricle normal Nasal Exam: Normal inspection Mouth: Dry mouth Pulmonary/Respiratory: Normal inspection, Normal breath sounds, Chest non- tender, Lungs clear Cardiovascular/Chest: Normal inspection, Regular rate, Normal Rhythm Abdominal Exam: Normal bowel sounds, Soft, No tenderness Appearance: Memory impairment, Disheveled, Other (Dementia) Eye contact/ Speech: Avoids eye contact, Refused to answer, Uncooperative Thoughts/Psych: Other (altered ) Skin Exam: Normal color, Warm/dry laboratory and microbiology Laboratory Tests 06/29/24 10:40 06/28/24 16:45 Test 06/29/24 10:40 Range/Units Serum Glucose 138 H 74-106 mg/dL Assessment/Plan Patient is a 78-year-old female presents to the hospital with: SIRS Altered mental status Bacteremia UTI Dementia Leukocytosis Recommendations: Bacteremia is likely colonization, Leucocytosis improved Continue Ceftriaxone. Discontinue Vancomycin 06/26, Blood cultured showed no growth 06/27, Urine culture showed >100,000 CFU/mL Mixed Evelin Thank you for consult. Dietary Evaluation Review Comments: 1) If patient remains NPO for more than 7 days, consider EN/TPN to meet at least 75% of estimated needs. 2) Advance patient to regular diet when medically feasible to cardiac diet, pending [employer] evaluation. 3) Continue IV fluids and ABT. Expected Outcomes/Goals: 1) patient labs and appetite to improve 2) patient to receive nutrition support within 7 days of NPO status 3) f/u in 2-3 days PAT MARTINEZ MD Jun 29, 2024 21:21
[2024-06-30 01:00] VITALS: BP 150/76; PULSE 70; RESP 20; TEMP 97.9; O2SAT 93
[2024-06-30 05:00] VITALS: BP_SYST 125; BP_SYST 157; BP_DIAS 76; BP_DIAS 86; PULSE 70; RESP 18; O2SAT 94
[2024-06-30 08:00] VITALS: RESP 17
[2024-06-30 09:00] VITALS: BP 140/74; PULSE 68; RESP 16; TEMP 97.7; O2SAT 94
[2024-06-30 13:00] VITALS: BP 140/90; PULSE 94; RESP 16; TEMP 97.3; O2SAT 96
[2024-06-30 14:33] LABS: Basophils # (auto) 0 10 ^3/uL (0-0.2); Basophils % (auto) 0.5 % (0.0-2.0); Eosinophils # (auto) 0 10 ^3/uL (0-0.8); Eosinophils % (auto) 0.4 % (0.0-7.0); Hematocrit 39.6 % (36.0-46.0); Hemoglobin 13.6 g/dL (12.2-16.2); Lymphocytes % (auto) 16.7 % (10.0-50.0); Mean Corpuscular Hgb Conc. 34.4 g/dL (32.0-36.0); Mean Corpuscular Volume 90.2 fL (80.0-100.0); Monocytes # (auto) 0.5 10 ^3/uL (0-1.3); Monocytes % (auto) 7.8 % (0.0-12.0); Neutrophils # (auto) 4.4 10 ^3/uL (1.6-8.6); Neutrophils % (auto) 74.6 % (37.0-80.0); Nucleated Red Blood Cells % 0.2 %; Platelet Count (auto) 234 10^3/uL (140-450); Red Blood Cells 4.39 10^6/uL (4.0-5.20); Red Cell Distribution Width 12.7 % (11.8-14.3); White Blood Cell 5.9 10^3/uL (4.4-10.8)
[2024-06-30 15:09] LABS: Chloride 104 mmol/L (98-107); Sodium 140 mmol/L (136-145)
[2024-06-30 15:10] LABS: Anion Gap 10 (5-15); Calcium 9.3 mg/dL (8.7-10.4); Carbon Dioxide 26 mmol/L (20-31); Potassium 3.2 mmol/L (3.5-5.1)
[2024-06-30 15:15] LABS: Blood Urea Nitrogen 16 mg/dL (9-23)
[2024-06-30 15:42] LABS: Glucose 110 mg/dL (74-106)
--- NOTE | 2024-06-30 16:50 | DVHPN2 ---
Progress Note - Dictate Date Seen: Jun 30, 2024 Medical Necessity Reason Pt with a Central, PICC or Fol: No Subjective Clinically stable. She remains confused but more alert and awake today. Her urine cultures are growing ESBL E coli. Discussed with the patient's who is the DPOA over the phone yesterday afternoon. vital signs Vital Sign Date Time Temp Pulse Resp B/P (MAP) Pulse Ox O2 Delivery O2 Flow Rate FiO2 06/30/24 09:00 97.7 68 16 140/74 (96) 94 97.7 06/30/24 08:00 Room Air* 0 21 Total Intake and Output 06/29/24 06/29/24 06/30/24 15:00 23:00 07:00 Intake Total 150 ml 0 ml 50 ml Output Total 100 ml 50 ml Balance 150 ml -100 ml 0 ml medications Current Medications Medications Dose Ordered Sig/Romy Route Start Time Stop Time Status Last Admin Dose Admin Ceftriaxone Sodium 50 ml @ 100 mls/hr DAILY IV 06/27/24 10:00 06/30/24 08:04 100 MLS/HR Acetaminophen 650 mg Q6HPRN PRN PO 06/27/24 01:45 Enoxaparin Sodium 40 mg DAILY SC 06/27/24 10:00 06/30/24 08:03 40 MG Divalproex Sodium 250 mg BID PO 06/27/24 22:00 Haloperidol 1 mg BID PO 06/27/24 22:00 06/28/24 22:49 1 MG Donepezil HCl 10 mg HS PO 06/27/24 22:00 06/28/24 22:41 10 MG Memantine 10 mg BID PO 06/27/24 22:00 06/28/24 22:38 10 MG Vancomycin HCl 0 ml @ 0 mls/hr UD IV 06/28/24 05:15 Vancomycin HCl 250 ml @ 250 mls/hr DAILY@0500 IV 06/29/24 05:00 Cancel Dextrose 1,000 ml @ 50 mls/hr Q20H IV 06/28/24 17:30 06/30/24 08:02 50 MLS/HR Vancomycin HCl 750 mg/Dextrose 100 ml @ 100 mls/hr DAILY@0800 IV 06/29/24 08:00 06/30/24 08:02 100 MLS/HR objective Elderly female comfortable in bed with out any distress however confused. Heart regular rate and rhythm S1 plus S2. Lungs fair air movement without rales wheezes. Abdomen soft nontender positive bowel sounds. Extremities no edema. laboratory and microbiology Laboratory Tests 06/30/24 14:00 Test 06/30/24 14:00 Range/Units Serum Glucose 110 H 74-106 mg/dL Assessment/Plan ESBL E coli UTI Advanced Alzheimer's disease/dementia appears to be progressing. I will DC current IV antibiotics and start her on ertapenem for ESBL UTI. I talked to patient's who lives in [facility]. Patient will go back to for most and given her advanced dementia to consider room hospice care. Patient's is open to the idea of hospice care if she does not significantly improve. For now continue present management. Further clinical management per clinical course. Dietary Evaluation Review Comments: 1) If patient remains NPO for more than 7 days, consider EN/TPN to meet at least 75% of estimated needs. 2) Advance patient to regular diet when medically feasible to cardiac diet, pending [employer]EL[employer] evaluation. 3) Continue IV fluids and ABT. Expected Outcomes/Goals: 1) patient labs and appetite to improve 2) patient to receive nutrition support within 7 days of NPO status 3) f/u in 2-3 days Plan discussed with: Other BRADY GUADARRAMA MD Jun 30, 2024 16:49
[2024-06-30 17:00] VITALS: BP 140/90; PULSE 94; RESP 16; TEMP 97.3; O2SAT 96
[2024-06-30] MEDS: ERTAPENEM SOD INJ 1 GM in SODIUM CHL 0.9% 50 ML IV SCH (18:52)
[2024-07-01 08:00] VITALS: PULSE 84; PULSE 95; RESP 18
[2024-07-01] MEDS: LORazepam 2MG/ML-1ML VIAL IV ONE (09:37)
[2024-07-01 12:00] VITALS: PULSE 84
== END 2024-07-01 15:19 | DRG 689 ==
LOC: ER 19:49 → EDBD 19:49 → OVERFLOW 06-27 01:39 → TELE 06-27 20:28 → TELE-CENTR 06-27 21:46 → TELE-EAST 06-30 11:08
PROVIDERS: ADMIT Hospitalist; ATTEND Hospitalist
PROC: 05H933Z Insertion of Infusion Device into Right Brachial Vein, Percutaneous Approach (ICD-10-PCS; principal; 2024-07-01)
PROC: B54MZZA Ultrasonography of Right Upper Extremity Veins, Guidance (ICD-10-PCS; 2024-07-01)
DX: N39.0 Urinary tract infection, site not specified (principal); G93.41 Metabolic encephalopathy; R78.81 Bacteremia; R65.10 Systemic inflammatory response syndrome (SIRS) of non-infectious origin without acute organ dysfunction; Z16.12 Extended spectrum beta lactamase (ESBL) resistance; F02.80 Dementia in other diseases classified elsewhere, unspecified severity, without behavioral disturbance, psychotic disturbance, mood disturbance, and anxiety; G30.9 Alzheimer's disease, unspecified; B96.20 Unspecified Escherichia coli [E. coli] as the cause of diseases classified elsewhere; K21.9 Gastro-esophageal reflux disease without esophagitis; Z79.899 Other long term (current) drug therapy
CPT/HCPCS: 36415; 70450; 71045; 80048; 80053; 80202; 81001; 83605; 84484; 85025; 87040; 87086; 87088; 87186; 97162; 97530; G0378; J1335; J2405; J2470; J3480; J7042; J7060